=== PATIENT | female | born 1945 | race Caucasian/White ===

== ENCOUNTER 2017-09-20 05:48 | Inpatient (IN) ==
[2017-09-20] MEDS ORDERED: DIAZEPAM 5 MG TABLET PO ONE (06:00)
[2017-09-20] MEDS ORDERED: VANCOMYCIN INJ 1,000 MG in SODIUM CHLORIDE 0.9% 250 ML IV ONE (06:00)
[2017-09-20] MEDS ORDERED: FAMOTIDINE 20 MG TABLET PO ONE (06:00)
[2017-09-20] MEDS ORDERED: ceFAZolin 1,000 MG in SYRINGE 1 EACH IV ONE (06:00)
[2017-09-20] MEDS ORDERED: TRANEXAMIC ACID 1,000 MG/10 ML VIAL IV ONE (06:38)
[2017-09-20] MEDS ORDERED: ceFAZolin 1,000 MG VIAL ONE (07:50)
[2017-09-20] MEDS ORDERED: DIAZEPAM 5 MG TABLET ONE (07:50)
[2017-09-20] MEDS ORDERED: FAMOTIDINE 20 MG TABLET ONE (07:50)
[2017-09-20] MEDS ORDERED: VANCOMYCIN 1,000 MG VIAL ONE (07:50)
[2017-09-20] MEDS ORDERED: BUPIVACAINE SPINAL 0.75% 2 ML AMP SPINAL ONE (07:53)
[2017-09-20] MEDS ORDERED: MORPHINE 10 MG/10 ML VIAL ONE (07:53)
[2017-09-20] MEDS: LACTATED RINGERS 1,000 ML IV SCH (08:13)
[2017-09-20] MEDS ORDERED: ROPIVACAINE 0.5% 30 ML VIAL ONE (10:25)
[2017-09-20] MEDS ORDERED: MIDAZOLAM 2 MG/2 ML VIAL ONE (10:40)
[2017-09-20] MEDS ORDERED: fentaNYL 100 MCG/2 ML VIAL ONE (10:41)
[2017-09-20] MEDS ORDERED: LABETALOL 100 MG/20 ML VIAL IV ONE (10:42)
[2017-09-20] MEDS ORDERED: ACETAMINOPHEN 1,000 MG/100 ML VIAL IV ONE (10:42)
[2017-09-20] MEDS ORDERED: KETOROLAC 30 MG/1 ML VIAL ONE (10:42)
[2017-09-20] MEDS ORDERED: ONDANSETRON 4 MG/2 ML VIAL ONE ×2 (10:42→10:59)
[2017-09-20] MEDS ORDERED: KETAMINE 500 MG/10 ML VIAL ONE (10:42)
[2017-09-20] MEDS ORDERED: DEXAMETHASONE 10 MG/1 ML VIAL ONE (10:42)
[2017-09-20] MEDS ORDERED: LACTATED RINGERS 1,000 ML IV ONE (10:43)
[2017-09-20] MEDS ORDERED: hydrOXYzine HCL 25 MG/1 ML VIAL IM PRN (10:49)
[2017-09-20] MEDS ORDERED: diphenhydrAMINE 50 MG/1 ML VIAL IV PRN (10:49)
[2017-09-20] MEDS ORDERED: ONDANSETRON 4 MG/2 ML VIAL IV PRN ×2 (10:49→10:58)
[2017-09-20] MEDS ORDERED: HYDROmorphone 2 MG/1 ML VIAL ONE (10:59)
[2017-09-20] MEDS: HYDROmorphone 2 MG/1 ML VIAL IV PRN ×2 (11:02→11:09)
[2017-09-20] MEDS ORDERED: PROPOFOL 200 MG/20 ML VIAL IV ONE (11:58)
[2017-09-20] MEDS ORDERED: MORPHINE 2 MG/1 ML SYRINGE IV PRN (13:32)
[2017-09-20] MEDS ORDERED: PROMETHAZINE 25 MG/1 ML VIAL IM PRN (13:32)
[2017-09-20] MEDS ORDERED: NALOXONE 0.4 MG/ML VIAL IV PRN (13:32)
[2017-09-20] MEDS ORDERED: diphenhydrAMINE CAP 25 MG CAPSULE PO PRN (13:32)
[2017-09-20] MEDS ORDERED: MAGNESIUM HYDROXIDE SUSP 30 ML UDCUP PO PRN (13:32)
[2017-09-20] MEDS ORDERED: TEMAZEPAM 7.5 MG CAPSULE PO PRN (13:32)
[2017-09-20] MEDS: ceFAZolin 1,000 MG in SYRINGE 1 EACH IV SCH ×2 (14:22→22:10)
[2017-09-20] MEDS: MORPHINE PCA 30 MG/30 ML SYRINGE IV SCH (14:23)
[2017-09-20 15:15] LABS: Basophils % 0.1 % (0.0-0.8); Hematocrit 35.9 VOL% (35.7-47.0); Hemoglobin 11.8 GM/DL (12.0-16.0); Immature Granulocytes % 0.6 %; Immature Granulocytes Absolute 0.09 #; Lymphocytes # 0.7 10*3/uL (1.4-4.0); Lymphocytes % 4.3 % (21.3-54.2); Mean Corpuscular HGB Conc 32.9 GM/DL (32-36); Mean Corpuscular Hemoglobin 31 PG (27-34); Mean Corpuscular Volume 92.8 FL (87-102); Mean Platelet Volume 10.9 FL (9.6-12.0); Monocytes # 0.4 10*3/uL (0.11-0.8); Monocytes % 2.4 % (1.7-12.7); Neutrophils # 13.9 10*3/uL (1.4-7.4); Neutrophils % 92.6 % (38.7-73.9); Platelet Count 213 T/CUMM (130-400); Red Blood Count 3.87 MC/CUMM (3.8-5.5); Red Cell Distribution Width 12.5 % (9.3-17.3)
[2017-09-20 15:44] LABS: Osmolality,Calculated 276.8 MOS/KG (273-304); Potassium 3.4 MMOL/L (3.5-5.1)
[2017-09-20 16:02] LABS: Lymphocytes 4 % (20-55); Segmented Neutrophils 94 % (50-85)
[2017-09-20 16:03] LABS: Platelet Estimate Normal; Total Cells Counted 100
[2017-09-20] MEDS: CALCIUM (CARBONATE)/VITAMIN D 500 MG-200 UNIT TABLET PO SCH (22:06)
[2017-09-20] MEDS: OMEGA 3 ACID ETHYL ESTERS 1 GM CAPSULE PO SCH (22:06)
[2017-09-20] MEDS: DOCUSATE SODIUM 100 MG CAPSULE PO SCH (22:06)
[2017-09-20] MEDS: FONDAPARINUX 2.5 MG/0.5 ML SYRINGE SUBCUT SCH (22:07)
[2017-09-21 05:36] LABS: Basophils % 0.1 % (0.0-0.8); Hematocrit 32.8 VOL% (35.7-47.0); Hemoglobin 11.3 GM/DL (12.0-16.0); Immature Granulocytes % 0.5 %; Immature Granulocytes Absolute 0.07 #; Lymphocytes # 1.1 10*3/uL (1.4-4.0); Lymphocytes % 7.2 % (21.3-54.2); Mean Corpuscular HGB Conc 34.5 GM/DL (32-36); Mean Corpuscular Hemoglobin 31 PG (27-34); Mean Corpuscular Volume 90.1 FL (87-102); Mean Platelet Volume 11.1 FL (9.6-12.0); Monocytes # 1.5 10*3/uL (0.11-0.8); Monocytes % 9.4 % (1.7-12.7); Neutrophils # 12.8 10*3/uL (1.4-7.4); Neutrophils % 82.8 % (38.7-73.9); Platelet Count 206 T/CUMM (130-400); Red Blood Count 3.64 MC/CUMM (3.8-5.5); Red Cell Distribution Width 12.7 % (9.3-17.3); White Blood Count 15.5 T/CUMM (4-12)
[2017-09-21 06:01] LABS: Giant Platelets Few; Hypochromasia 1+; Lymphocytes 6 % (20-55); Platelet Estimate Adequate; Segmented Neutrophils 88 % (50-85); Total Cells Counted 100
[2017-09-21 06:02] LABS: Calcium 8.1 MG/DL (8.5-10.1); Osmolality,Calculated 278.5 MOS/KG (273-304); Potassium 3.9 MMOL/L (3.5-5.1)
[2017-09-21] MEDS: LACTATED RINGERS 1,000 ML IV SCH (09:06)
[2017-09-21] MEDS: TIMOLOL 0.5% OPH SOLN 5 ML BOTTLE BOTH EYES SCH (09:07)
[2017-09-21] MEDS: MULTIVITAMIN (CENTRUM) TABLET PO SCH (09:07)
[2017-09-21] MEDS: OMEGA 3 ACID ETHYL ESTERS 1 GM CAPSULE PO SCH ×2 (09:07→23:24)
[2017-09-21] MEDS: CHOLECALCIFEROL 1,000 UNIT TABLET PO SCH (09:07)
[2017-09-21] MEDS: ASCORBIC ACID 500 MG TABLET PO SCH (09:07)
[2017-09-21] MEDS: MELOXICAM 7.5 MG TABLET PO SCH (09:07)
[2017-09-21] MEDS: CITALOPRAM 20 MG TABLET PO SCH (09:07)
[2017-09-21] MEDS: DOCUSATE SODIUM 100 MG CAPSULE PO SCH ×2 (09:08→23:24)
[2017-09-21] MEDS: PANTOPRAZOLE 40 MG TABLET PO SCH (09:08)
[2017-09-21] MEDS: ASPIRIN EC 81 MG TABLET PO SCH (09:08)
[2017-09-21] MEDS: CALCIUM (CARBONATE)/VITAMIN D 500 MG-200 UNIT TABLET PO SCH ×2 (09:09→23:24)
[2017-09-21] MEDS: MORPHINE PCA 30 MG/30 ML SYRINGE IV SCH (14:17)
[2017-09-21 17:05] LABS: Amorphous Crystals,Urine Occasional /HPF (Few); Apearance,Urine Slightly Hazy (Clear); Bilirubin,Urine Negative (Negative); Blood, Urine Negative (Negative); Glucose,Urine (UA) Negative (Negative); Ketones,Urine Negative (Negative); Mucus,Urine Occasional /LPF (Occasional); Nitrite,Urine Negative (Negative); Protein,Urine Negative; RBC,Urine 1 /HPF (0-4); Squamous Epithelial Cell,Urine Occasional /HPF (0-10); Urine Color Yellow (Yellow); Urine Specific Gravity 1.009 (1.001-1.035); Urine Urobilinogen < 2.0 EU/DL (0.2-1.0); WBC,Urine 10 /HPF (0-6)
[2017-09-21] MEDS: FONDAPARINUX 2.5 MG/0.5 ML SYRINGE SUBCUT SCH (23:24)
[2017-09-22] MEDS: LACTATED RINGERS 1,000 ML IV SCH (07:01)
[2017-09-22] MEDS: CITALOPRAM 20 MG TABLET PO SCH (09:36)
[2017-09-22] MEDS: ASPIRIN EC 81 MG TABLET PO SCH (09:36)
[2017-09-22] MEDS: OMEGA 3 ACID ETHYL ESTERS 1 GM CAPSULE PO SCH ×2 (09:37→21:01)
[2017-09-22] MEDS: MULTIVITAMIN (CENTRUM) TABLET PO SCH (09:37)
[2017-09-22] MEDS: DOCUSATE SODIUM 100 MG CAPSULE PO SCH ×2 (09:37→21:01)
[2017-09-22] MEDS: CALCIUM (CARBONATE)/VITAMIN D 500 MG-200 UNIT TABLET PO SCH ×2 (09:38→21:01)
[2017-09-22] MEDS: CHOLECALCIFEROL 1,000 UNIT TABLET PO SCH (09:38)
[2017-09-22] MEDS: MELOXICAM 7.5 MG TABLET PO SCH (09:38)
[2017-09-22] MEDS: PANTOPRAZOLE 40 MG TABLET PO SCH (09:38)
[2017-09-22] MEDS: TIMOLOL 0.5% OPH SOLN 5 ML BOTTLE BOTH EYES SCH (09:39)
[2017-09-22] MEDS: ASCORBIC ACID 500 MG TABLET PO SCH (09:39)
[2017-09-22] MEDS: FONDAPARINUX 2.5 MG/0.5 ML SYRINGE SUBCUT SCH (21:02)
[2017-09-23] MEDS: TIMOLOL 0.5% OPH SOLN 5 ML BOTTLE BOTH EYES SCH (08:24)
[2017-09-23] MEDS: ASCORBIC ACID 500 MG TABLET PO SCH (08:24)
[2017-09-23] MEDS: ASPIRIN EC 81 MG TABLET PO SCH (08:24)
[2017-09-23] MEDS: CALCIUM (CARBONATE)/VITAMIN D 500 MG-200 UNIT TABLET PO SCH (08:25)
[2017-09-23] MEDS: CITALOPRAM 20 MG TABLET PO SCH (08:26)
[2017-09-23] MEDS: MULTIVITAMIN (CENTRUM) TABLET PO SCH (08:26)
[2017-09-23] MEDS: CHOLECALCIFEROL 1,000 UNIT TABLET PO SCH (08:26)
[2017-09-23] MEDS: PANTOPRAZOLE 40 MG TABLET PO SCH (08:27)
[2017-09-23] MEDS: MELOXICAM 7.5 MG TABLET PO SCH (08:27)
[2017-09-23] MEDS: DOCUSATE SODIUM 100 MG CAPSULE PO SCH (08:27)
[2017-09-23] MEDS: OMEGA 3 ACID ETHYL ESTERS 1 GM CAPSULE PO SCH (08:27)
[2017-09-23] MEDS ORDERED: FUROSEMIDE 40 MG/4 ML VIAL IV ONE (09:28)
[2017-09-23 11:39] VITALS: BP 141/66
[2017-09-23] MEDS: FONDAPARINUX 2.5 MG/0.5 ML SYRINGE SUBCUT SCH (15:14)
[2017-09-30] MEDS ORDERED: ESTRADIOL VAG SCH (13:45)
== END 2017-09-23 15:35 | disposition home health service (06) | DRG 470 ==
LOC: N.OR 05:48 → N.SDSINP 05:49 → N.OR 05:50 → N.SDSINP 06:12 → N.3E 11:47 → EDSTATUS 12:15 → N.3E 13:29
PROVIDERS: ADMIT Orthopaedic Surgery; ATTEND Orthopaedic Surgery